=== PATIENT | male | born 1950 | race African-American/Black ===

== ENCOUNTER 2025-09-06 08:49 | Emergency (ER) | payer MEDICARE | END 2025-09-06 10:41 | disposition home or self-care (01) | LOC: BURERS 08:49 | DX: S91.204A Unspecified open wound of right lesser toe(s) with damage to nail, initial encounter (principal); S90.221A Contusion of right lesser toe(s) with damage to nail, initial encounter; E11.9 Type 2 diabetes mellitus without complications; I10 Essential (primary) hypertension; W22.09XA Striking against other stationary object, initial encounter | CPT/HCPCS: 96374; J2270 ==